=== PATIENT | female | born 1975 | race Caucasian/White ===

== ENCOUNTER → 2018-03-27 | Outpatient (CLI) | payer OTHER ==
[~2018-03-27] MED LIST: ABILIFY5 MG PO; ACIPHEX20 MG PO; ADVAIR 100-501 EACH IH; ADVAIR 100/501 DISK IH; BEYAZ 28 TABLE1 EACH PO; CIPRO500 MG PO; CLARITIN,ALAVAR10 MG PO; CLARITIN10 MG PO; DAILY MULTIPLE1 EACH PO; DOXYCYCLINE HY100 M3 PO; DROSPIRENONE; EFFEXOR XR150 MG PO; ETHINYL ESTRADIOL; Ecotrin PO; FLAGYL500 MG PO; HYDROCODON-ACE1 EAC7 PO; LAMICTAL100 MG PO; LEVAQUIN500 MG PO; LEVOMEFOLATE; MELATONIN3 MG PO; MOBIC15 MG PO; NASONEX17 GM BOTH NARES; PANTOPRAZOLE SO40 MG PO; PERCOCET 5/31 TABLET PO; PROAIR HFA8.5 GM IH; PROVENTIL,200 INHALA IH; Proventil,Ventolin H IH; SIMVASTATIN20 M1 PO; SIMVASTATIN40 MG PO; SINGULAIR10 MG PO; Singulair PO; TOPAMAX100 MG PO; VITAMIN B-12250 MCG PO; WELLBUTRIN XL150 MG PO; ZOCOR20 MG PO; ZOFRAN ODT8 MG PO; ZOLOFT100 M1 PO; Zocor PO; Zoloft PO
== END | disposition home or self-care (01) ==
LOC: RAD 02-25 13:00
DX: I25.10 Atherosclerotic heart disease of native coronary artery without angina pectoris (principal); I51.7 Cardiomegaly; E78.01 Familial hypercholesterolemia
CPT/HCPCS: 75574